=== PATIENT | male | born 1930 | race Caucasian/White ===

== ENCOUNTER 2016-09-24 12:24 | Emergency (ER) | payer MEDICARE, OTHER ==
[~2016-09-24] VITALS: Ht 168.9 cm; Wt 72.7 kg
[~2016-09-24 12:24] MED LIST: ASA LO-DOSE81 MG OR; BENAZEPRIL40 MG PO; CARDIZEM CD240 MG OR; CARDIZEM LA180 MG OR; DIGOXIN0.25 MG PO; DIOVAN80 MG OR; FLAGYL500 MG PO; KEFLEX500 MG PO; LIPITOR20 MG OR; LOPRESSOR50 MG PO; NADOLOL20 MG PO; NORVASC PO; PREPARATIO H RE; SIMVASTATIN10 MG PO; TAMSULOSIN0.4 MG PO; TOPROL XL OR; WARFARIN2.5 MG OR; WARFARIN5 MG OR; [UNRECOGNIZED DRUG - CODE] OR; [UNRECOGNIZED DRUG - MIXTURE] PO
[2016-09-24] MEDS ORDERED: KEFLEX500 MG PO (13:12)
[2016-09-24 13:27] VITALS: BP 162/89
== END 2016-09-24 13:32 | disposition home or self-care (01) ==
LOC: ED 12:24
PROC: 0HQKXZZ Repair Right Lower Leg Skin, External Approach (ICD-10-PCS; principal; 2016-09-24)
DX: L98.0 Pyogenic granuloma (principal); R58 Hemorrhage, not elsewhere classified

== ENCOUNTER 2016-09-26 08:13 | Emergency (ER) | payer MEDICARE, OTHER ==
[~2016-09-26] VITALS: Ht 168.9 cm; Wt 80.0 kg
[2016-09-26 10:11] LABS: HEMATOCRIT 43.1 % (39.0-50.0); HEMOGLOBIN 14.9 g/dl (14.0-18.0); MEAN CELL VOLUME 92.9 fL CALC (80.0-100.0); MEAN CORPUSCULAR HGB 32.1 pG CALC (26.0-32.0); MEAN CORPUSCULAR HGB CONC 34.6 g/L CALC (32.0-36.0); NEUT# 5.37 thou/uL (1.82-7.42); RED BLOOD COUNT 4.64 mill/uL (4.70-6.10); RED CELL DISTRI WIDTH 12.7 % (11.5-15.5)
[2016-09-26 10:36] LABS: INTERNATIONAL NORMALIZED RATIO 1.9 RATIO (0.7-1.3); PROTHROMBIN TIME 21.6 SECONDS (9.0-12.5)
[2016-09-26 10:39] LABS: ALBUMIN 4.6 g/dL (3.2-5.0); ALKALINE PHOSPHATASE 94 u/l (38-126); ANION GAP 18 (6-22 (CALC)); BILIRUBIN, TOTAL 1.3 mg/dL (0.0-1.4); BUN 12 mg/dL (8-23); BUN/CREATININE RATIO 17 (12-20 (CALC)); CALCIUM 9.4 mg/dL (8.4-10.2); CARBON DIOXIDE 24 mmol/l (22-30); CHLORIDE 107 mmol/l (95-108); CREATININE 0.7 mg/dL (0.7-1.3); GFR > 60 ML/MIN (>=60 (CALC)); GFR FOR AFR.AMER. > 60 ML/MIN (>=60 (CALC)); GLUCOSE 94 mg/dL (82-115); POTASSIUM 4.5 mmol/l (3.5-5.1); SGOT/AST 28 u/l (19-48); SGPT/ALT 37 u/l (11-66); SODIUM 144 mmol/l (137-146); TOTAL PROTEIN 7.4 g/dL (6.3-8.2)
[2016-09-26 11:11] VITALS: BP 147/80
== END 2016-09-26 11:11 | disposition home or self-care (01) ==
LOC: ED 08:13
PROVIDERS: Emergency Medicine
PROC: 0HQKXZZ Repair Right Lower Leg Skin, External Approach (ICD-10-PCS; principal; 2016-09-26)
DX: L98.0 Pyogenic granuloma (principal); R58 Hemorrhage, not elsewhere classified